=== PATIENT | female | born 1990 | race Caucasian/White ===

== ENCOUNTER 2017-11-25 22:15 | Emergency (ER) | payer BC ==
--- NOTE | 2017-11-26 17:01 | EDM.PDOC ---
ED HPI GENERAL MEDICAL PROBLEM - General Chief Complaint: General Stated Complaint: Nose bleed Time Seen by Provider: 11/25/17 22:29 Source of Information: Reports: Patient, RN History Limitations: Reports: No Limitations - History of Present Illness INITIAL COMMENTS - FREE TEXT/NARRATIVE: 27 yr female presents with epistaxis. States history aobut 5 yr ago and had to have cautery to both nares to stop epistaxis. She is tearful and upset, thinking she has to go through this again. States this time she has had bleeding for about 30 minutes at home. States she has been pinching the nose to stop the bleeding and quit blowing nose. states she does have humidifier in house and moved to her bedroom tonight. States she was just sitting and no injury to the nose, bleeding just started. States she does have a nasal gel for lubrication for her nares, but is outdated. Her brought her in and is waiting in the waiting room Onset: Today Onset Date: 11/25/17 Onset Time: 22:00 Location: Reports: Other (nose) Improves with: Reports: Other (pressure to nose) Worsens with: Reports: Movement ED ROS ENT - Review of Systems Review Of Systems: See Below Constitutional: Reports: No Symptoms. Denies: Fever, Chills HEENT: Reports: Nosebleed. Denies: Dental Pain, Eye Discharge, Eye Pain, Throat Pain Respiratory: Reports: No Symptoms Cardiovascular: Reports: No Symptoms GI/Abdominal: Reports: No Symptoms ED EXAM, ENT - Physical Exam Exam: See Below Exam Limited By: No Limitations General Appearance: Alert, No Apparent Distress Ears: Normal External Exam, Hearing Grossly Normal Nose: Nasal Discharge, Other (clear to serosanguinous drainage noted to tissue from nose, decreasing in amount) Mouth/Throat: Normal Inspection, Normal Oropharynx, Normal Teeth Head: Atraumatic, Normocephalic Neck: Normal Inspection, Non-Tender, Full Range of Motion Respiratory/Chest: No Respiratory Distress, Lungs Clear, Normal Breath Sounds Cardiovascular: Normal Peripheral Pulses, Regular Rate, Rhythm GI/Abdominal: Soft, Non-Tender Course - Vital Signs Last Recorded V/S: Last Vital Signs Temp 98.2 F 11/25/17 22:30 Pulse 86 11/25/17 22:30 Resp 20 11/25/17 22:30 BP 139/75 11/25/17 22:30 Pulse Ox 100 11/25/17 22:30 - Re-Assessments/Exams Free Text/Narrative Re-Assessment/Exam: 11/26/17 17:04 11-25-17 22:55 Pt held pressure to nose and ice applied per ARINA Man to bridge of nose. Serosanguinous fluid from nose slowly decreased with use of ice and pressure. Bogginess noted to nasal septum. Recommend continued use of pressure to nose and ice as needed to prevent bleeding. Recommend humidifier to air in home, nasal gel for lubrication OTC tomorrow, Loratadine 10 mg PO daily for rhinitis. No blowing nose for next 24 to 48 hour. Rest and fluids as needed. Return to ER of clinic as needed if symptoms worsen or persist. Departure - Departure Time of Disposition: 23:00 Disposition: Home, Self-Care 01 Condition: Good Clinical Impression: Epistaxis not due to trauma - Discharge Information Referrals: PCP,None [Primary Care Provider] - Forms: ED Department Discharge
== END 2017-11-25 22:57 | disposition home or self-care (01) ==
LOC: LB.ED 22:15 → MERGE 22:15 → LB.ED 22:57
DX: R04.0 Epistaxis (principal)
CPT/HCPCS: 99283